=== PATIENT | male | born 1995 | race Caucasian/White ===

== ENCOUNTER 2020-11-15 13:34 | Emergency (ER) | payer MEDICAID ==
[~2020-11-15] VITALS: Ht 190.5 cm; Wt 178.0 kg
--- NOTE | 2020-11-15 13:38 | NUR ---
LATE ENTRY DUE TO PATIENT CARE: BIB EMS WITH CHIEF C/O LEFT LOWER EXTREMITY INJURY. PER EMS PATIENT FOUND DOWN AT HOME AFTER GETTING HIS SHOE CAUGHT IN A CHAIR AND TWISTING HIS KNEE. PATIENT TX FROM [facility], WHERE IMAGING SHOWED LEFT KNEE DISLOCATION, WHICH WAS SUCCESSFULLY REDUCED AT HOSPITAL. 1 MG DIALUDID GIVEN EN ROUTE, VSS EN ROUTE. UPON ASSESSMENT PATIENT REPORTS 5/10 LEFT KNEE PAIN, DENIES ANY NUMBNESS OR TINGLING, LEFT DORSALIS PULSE LOCATED WITH DOPPLER, NO OTHER INJURIES REPORTED. CONNECTED TO MONITOR, VSS, MOM AT BEDSIDE, CALL LIGHT WITHIN REACH. Addendum: 11/15/20 at 1855 by LSTROMAN FIRST CONTACT WITH PT. PT SITTING UP IN BED TALKING. VLADIMIR. WILL CONTINUE TO MONITOR.
--- NOTE | 2020-11-15 14:40 | NUR ---
PATIENT SITTING IN GURNEY ON PHONE, NADN, CONNECTED TO MONITOR, VSS, MOM AT BEDSIDE, CALL LIGHT WITHIN REACH.
--- NOTE | 2020-11-15 15:00 | NUR ---
20 GAUGE IV STARTED LEFT FA FOR CT SCAN.
--- NOTE | 2020-11-15 15:04 | NUR ---
PATIENT TO IMAGING.
[2020-11-15] MEDS ORDERED: OMNIPAQUE 350 MG/ML, 150 ML BOTTLE ONE (15:36)
--- NOTE | 2020-11-15 16:51 | NUR ---
ULTRASOUND AT BEDSIDE.
--- NOTE | 2020-11-15 16:56 | NUR ---
called [facility] and spoke with jimy regarding stat jyoti order and she is aware.
[2020-11-15] MEDS ORDERED: CLOPIDOGREL 75 MG TABLET PO ONE (17:00)
[2020-11-15] MEDS ORDERED: HEPARIN 5,000 UNITS/ML, 1ML IV ONE (17:00)
--- NOTE | 2020-11-15 18:11 | NUR ---
ULTRASOUND STILL AT BEDSIDE. PATIENT CONNECTED TO MONITOR, VSS, CALL LIGHT WITHIN REACH, MOM AT BEDSIDE, NO FURTHER NEEDS AT THIS TIME. WAITING FOR ORTHO.
--- NOTE | 2020-11-15 18:48 | NUR ---
REPORT TO ROSA GRANDE FOR TRANSFER OF PATIENT CARE.
[2020-11-15] MEDS ORDERED: HEPARIN 5,000 UNITS/ML, 1ML ONE (19:58)
[2020-11-15] MEDS ORDERED: CLOPIDOGREL 75 MG TABLET ONE (19:58)
[2020-11-15] MEDS ORDERED: HYDROcodone/APAP 10/325 MG TABLET ONE (19:59)
[2020-11-15 20:22] VITALS: BP 140/83
--- NOTE | 2020-11-15 20:22 | NUR ---
PT TO MRI
--- NOTE | 2020-11-15 21:52 | NUR ---
2130 PT BACK FROM MRI
== END 2020-11-15 21:54 | disposition home or self-care (01) ==
LOC: ED 16:13
DX: S83.105A Unspecified dislocation of left knee, initial encounter (principal); X50.0XXA Overexertion from strenuous movement or load, initial encounter; Y93.89 Activity, other specified; Y92.009 Unspecified place in unspecified non-institutional (private) residence as the place of occurrence of the external cause; Y99.8 Other external cause status
CPT/HCPCS: 29505; 36415; 73706; 73718; 80047; 93922; 96374; 99285; J1644; Q9967